=== PATIENT | male | born 1965 | race Caucasian/White ===

== ENCOUNTER 2017-02-15 13:18 | Emergency (ER) | payer OTHER ==
[~2017-02-15] VITALS: Ht 185.4 cm; Wt 102.1 kg
[2017-02-15] MEDS ORDERED: CELEXA40 MG PO (13:38)
[2017-02-15] MEDS ORDERED: BUSPIRONE HCL10 MG PO (13:39)
[2017-02-15] MEDS ORDERED: LIPITOR 20 MG T20 M1 PO (13:39)
[2017-02-15] MEDS ORDERED: NAPROSYN500 MG PO (14:43)
== END 2017-02-15 14:50 | disposition home or self-care (01) ==
LOC: ER 13:18
DX: S61.214A Laceration without foreign body of right ring finger without damage to nail, initial encounter (principal); I10 Essential (primary) hypertension; F41.9 Anxiety disorder, unspecified; F32.9 Major depressive disorder, single episode, unspecified; W26.8XXA Contact with other sharp object(s), not elsewhere classified, initial encounter; Y93.89 Activity, other specified; Y92.89 Other specified places as the place of occurrence of the external cause; Y99.8 Other external cause status